=== PATIENT | male | born 1965 | race Two or more races ===

== ENCOUNTER 2019-01-20 08:11 | Inpatient (IN) | payer OTHER ==
[~2019-01-20] VITALS: Ht 175.3 cm; Wt 96.2 kg
[2019-01-20] MEDS ORDERED: tuberculin, purif. prot. deriv. 5 units/0.1ml ID ONE (09:00)
[2019-01-20] MEDS ORDERED: acetaminophen 325mg tablet PO PRN ×2 (09:00)
[2019-01-20] MEDS ORDERED: hydrOXYzine 25 MG tablet PO PRN (09:00)
[2019-01-20] MEDS ORDERED: loperamide 2mg capsule PO PRN (09:00)
[2019-01-20] MEDS ORDERED: mag hydrox/Alum hydrox/simeth 30ml oral suspension PO PRN (09:00)
[2019-01-20] MEDS ORDERED: magnesium hydroxide 30ml (MOM) UD suspension PO PRN (09:00)
[2019-01-20] MEDS ORDERED: QUET100T33 PO (09:39)
[2019-01-20] MEDS ORDERED: SERT100T10 PO (09:39)
[2019-01-20] MEDS ORDERED: TEMA30CA PO (09:39)
[2019-01-20] MEDS ORDERED: ESZO3TAB44 PO (09:39)
[2019-01-20] MEDS ORDERED: CARV-50 PO (09:46)
[2019-01-20] MEDS ORDERED: FERR325T32 PO (09:48)
--- NOTE | 2019-01-20 14:50 | NUR ---
Pt arrives on the unit ambulatory at 1445. PT escorted y security and a taxicab driver and Kal MARTINEZ. PT taken to the shower for skin check. Pt admitted for depression after overdose on his medications and a stay in the ICU at [place]. Pt overdosed on Coreg,Procardia, Seroquel, and Trazodone and left a note for his brothers to take care of his family. Pt reports his had asked for a divorce and he hasn't been sleeping and worrying his is sleeping with other men. Pt admitted on 5150 for danger to self. Pt cooperative with admission process and using the online barker operator.
--- NOTE | 2019-01-20 16:00 | NUR ---
Vitals on admission: 121/76, 56 BPM, 97%, Pain: 0/10, T: 97.5, R:16
--- NOTE | 2019-01-20 18:00 | NUR ---
Chief complaint: 53 year-old male was brought in to the Emergency Department at [facility] on 01/07/19 with prior suicide attempt, and admitted for acute metabolic encephalopathy, nausea, vomiting, after intentional overdose with medications including Procardia, seroquel, trazodone, Procardia and benzodiazepines. He went into circulatory shock associated with the antihypertensive medication overdose vs. sepsis r/t aspiration pneumonia, and acute kidney injury r/t rhabdomyolosis vs. transamenitis. Pt. also has a non-bleeding gastric ulcer diagnosed by EGD. Patient was intubated due to the respiratory failure. He received IV antibiotic therapy during his hospital course for aspiration pneumonia. He was diagnosed with anemia and started on iron. Legal hold: Pt. on involuntary hold to DTS and suicide attempt Assessment: What happened this shift: pt. oriented to facility. He is malay speaking primarily but speaks broken greenlandic and understands some greenlandic as well. He is pleasant and cooperative and denies H/I, S/I, A/H, V/H. He denies feeling depressed or anxious at this time. He reports that he is concerned about not being able to sleep tonight. This RN reassured patient that he is here to recover and we are here to help him. Pt was appreciative of this and verbalized understanding. Pt. made a phone call to . Patient states that he has a good support system of family, friends, and his spouse. He ate a snack in the community room after admission completed. Pt. showered. Any Med S/E: N/A Mental Status Exam: Appearance: Clean, well groomed Eye contact: good Behavior: calm Speech: normal sarah, clear Mood: calm Affect: flat Thought Content: focused on sleep Cognition: A&O x 4 Insight: fair Judgement: fair Interventions: PRNs used: none Therapeutic interventions: Therapeutic interventions: attempted1:1 therapeutic assessment, maintained safe therapeutic milieu, provided active listening with positive feedback. Monitored for change in behavior and needed interventions. Q15 safety checks. Restraints/seclusion/emergency medication: N/A Justification of Continued Inpatient Treatment: Continued therapeutic support and medication management needed to provide stabilization, prevent decompensation, improve coping mechanisms decreasing risk to patient and readmission.
[2019-01-20 19:00] VITALS: BP 115/66
--- NOTE | 2019-01-20 19:30 | NUR ---
Nursing Note: Obtained orders from Migue SAMAYOA to D/C Temazepam and Amblawanda at HS r/t pt. having scheduled Seroquel ordered. Pt. encouraged to notify staff if he experiences any insomnia this shift, he reports understanding.
[2019-01-20 21:00] VITALS: BP 110/60
[2019-01-20] MEDS ORDERED: temazepam 15mg capsule PO SCH (21:00)
[2019-01-20] MEDS: carVEDilol 12.5mg tablet PO SCH (21:02)
[2019-01-20] MEDS: quetiapine 100mg tablet PO SCH (21:02)
[2019-01-20] MEDS: ferrous sulfate 325mg tablet PO SCH (21:02)
--- NOTE | 2019-01-21 00:47 | NUR ---
Nursing Progress Note: Legal hold: 5150 Client on involuntary status for DTS. Report received from nurse with use of SBAR: JUAN Gallo Why are they here: 53 year-old male was brought in to the Emergency Department at [facility] on 01/07/19 with altered sensorium after a suicide attempt to overdose on multiple medications including Procardia, Seroquel, Trazodone, Coreg, and Benzodiazepines. He was intubated for rr failure and admitted for acute metabolic encephalopathy, complicated by circulatory shock, possible sepsis r/t aspiration pneumonia, and acute kidney injury r/t hypoperfusion v/s rhabdomyolysis. Pt. also has a non-bleeding gastric ulcer diagnosed by EGD, and was diagnosed with anemia and started on iron. Pt. had left a note for his brothers to take care of his family. Pt reports his had asked for a divorce and he hasn't been sleeping and worrying his is sleeping with other men. Assessment What has happened this shift: Pt. in bed at the beginning of the shift, continues to isolate here throughout the shift, however does attend HS snack. This report writer introduces self and establishes rapport, pt. able to communicate with effectively and denies the need for use of computer oncology physician. 1:1 completed at bedside, pt. presents as pleasant, cooperative, fatigued, and guarded. He admits to ongoing depression and some anxiety, however denies any S/I or A/H. Pt. appears to be minimizing any s/s, resting comfortably, will continue to monitor. S/I, H/I: Denies A/VH: Denies Sleep: Pt. reports hx of insomnia, scheduled Seroquel administered. Pt. encouraged to notify staff if he experiences any insomnia this shift, he reports understanding. ADL's: Independent Group attendance: Attends HS snack Were meds taken: Yes Any med S/E: None Mental Status Exam Appearance: Neat and appropriately dressed in hospital attire Eye contact: Fair Behavior: Pt. presents as pleasant, cooperative, fatigued, and guarded. Speech: Soft, responds minimally to questions. Mood: Pleasant, but guarded Affect: Flat Thought process:Poverty of thought Thought Content: WNL Cognition: A &O X4 Insight: Poor Judgment: Poor Interventions PRN's used: None Therapeutic interventions: Introduced self and established rapport, ensured contract for safety, maintained a safe and therapeutic environment, observed for changes in behavior and need for intervention, encouraged independent performance of ADLs, and maintained Q 15 min safety checks. Restraints/seclusion/emergency medication: N/A Justification of Continued Inpatient Treatment: Pt. requires interruption of current crisis, medication adjustments, and a safe and supportive environment.
[2019-01-21 07:30] LABS: HEMOGLOBIN A1C 5.8 % (4.5-6.2)
[2019-01-21 07:47] LABS: CHOL/HDL RATIO 6.2 (0.00-4.99); CHOLESTEROL 155 MG/DL (0-200); HDL CHOLESTEROL 25 MG/DL (35-60); LDL CHOLESTEROL 102 MG/DL (50-100); TRIGLYCERIDES 139 MG/DL (20-135)
[2019-01-21 07:56] VITALS: BP 134/81
[2019-01-21] MEDS: carVEDilol 12.5mg tablet PO SCH ×2 (08:00→20:39)
[2019-01-21] MEDS: ferrous sulfate 325mg tablet PO SCH ×2 (08:30→20:39)
[2019-01-21] MEDS: sertraline 50mg tablet PO SCH (08:30)
[2019-01-21 09:00] LABS: BASOPHILS # (AUTO) 0.1 X10'3 (0-0.2); EOSINOPHILS # (AUTO) 0.3 X10'3 (0-0.9); EOSINOPHILS % (AUTO) 2.6 % (0-6); HEMATOCRIT 35.6 % (42.0-52.0); HEMOGLOBIN 11.7 g/dl (14.0-17.9); LYMPHOCYTES # (AUTO) 2.9 X10'3 (1.1-4.8); LYMPHOCYTES % (AUTO) 23.8 % (21-51); MEAN CORPUSCULAR HEMOGLOBIN 28.6 PG (27.0-31.0); MEAN CORPUSCULAR HGB CONC 32.9 g/dL (33.0-36.5); MEAN CORPUSCULAR VOLUME 86.9 FL (78-98); MEAN PLATELET VOLUME 8.1 FL (7.4-10.4); MONOCYTES # (AUTO) 1.1 X10'3 (0-0.9); NEUTROPHILS # (AUTO) 7.8 X10'3 (1.8-7.7); NEUTROPHILS % (AUTO) 63.6 % (42-75); PLATELET COUNT 496 X10'3 (140-440); WHITE BLOOD COUNT 12.3 X10'3 (4.5-11.0)
[2019-01-21 09:02] LABS: ALANINE AMINOTRANSFERASE 65 U/L (12-78); ALBUMIN/GLOBULIN RATIO 0.9 (1.1-1.5); ALKALINE PHOSPHATASE 57 IU/L (46-116); ANION GAP 12 (8-16); ASPARTATE AMINO TRANSFERASE 25 U/L (10-37); BILIRUBIN,TOTAL 0.3 MG/DL (0.1-1.0); BLOOD UREA NITROGEN 15 MG/DL (7-18); BUN/CREATININE RATIO 11.3 (5.4-32.0); CALCIUM 9.2 MG/DL (8.5-10.1); CHLORIDE 109 MMOL/L (99-107); CREATININE 1.33 MG/DL (0.60-1.10); GLUCOSE 88 MG/DL (70-104); POTASSIUM 4.2 MMOL/L (3.5-5.1); SODIUM 143 MMOL/L (135-145); TOTAL CARBON DIOXIDE 22.4 MMOL/L (24-32); TOTAL PROTEIN 6.4 G/DL (6.4-8.2); eGFR 56 ML/MIN
--- NOTE | 2019-01-21 09:57 | NUR ---
Malnutrition consult. Patient presents with reported 24-33 lb weight loss and reports of poor appetite. Patient is eating well, appears to have great appetite and 100% PO intake of heart healthy meals. Newly diagnosed with HTN, LDL 102, HDL 25, TG of 139, reports eating low sodium meals at home. Patient has no edema. Normal muscle strength. Does not meet criteria for malnutrition at this time. Addendum: 01/21/19 at [address] Amended: Links added.
[2019-01-21] MEDS: pantoprazole 40mg Tablet.DR PO SCH (11:00)
[2019-01-21] MEDS ORDERED: NIFE60TA79 PO (11:45)
[2019-01-21] MEDS ORDERED: IRBE1TAB33 PO (11:45)
--- NOTE | 2019-01-21 13:23 | NUR ---
COUNTY CONTACT: SW made TC to Triage Connect Team (TCT) at [phone] and spoke with Piedad. SW requested information that could be used for discharge planning and/or care coordination. Per TCT, pt has never been placed in [facility] for acute stabilization. SW provided update. Per report, pt has requested medical leave from work through February 2019. Piedad Quinonez, Corporate Training Manager SPRINKLING SYSTEM IRRIGATOR [id number] Supervised by Renard Ramos, [id number]
--- NOTE | 2019-01-21 17:58 | NUR ---
Nursing Progress Note: Legal hold: 5150 Client on involuntary status for DTS. Report received from nurse with use of SBAR: JUAN Gallo Why are they here: 53 year-old male was brought in to the Emergency Department at [facility] on 01/07/19 with altered sensorium after a suicide attempt to overdose on multiple medications including Procardia, Seroquel, Trazodone, Coreg, and Benzodiazepines. He was intubated for rr failure and admitted for acute metabolic encephalopathy, complicated by circulatory shock, possible sepsis r/t aspiration pneumonia, and acute kidney injury r/t hypoperfusion v/s rhabdomyolysis. Pt. also has a non-bleeding gastric ulcer diagnosed by EGD, and was diagnosed with anemia and started on iron. Pt. had left a note for his brothers to take care of his family. Pt reports his had asked for a divorce and he hasn't been sleeping and worrying his is sleeping with other men. Assessment What has happened this shift: Patient has been staying in his room for much of the day. Patient is Jordanian speaking. Patient states that his asked him for a divorce 7 months ago and has been depressed/suicidal. He is agreeable to going to counseling with his . Patient has been pleasant and cooperative on unit. S/I, H/I: SI via OD. A/VH: Denies Sleep: Seven hours at night. Reports he only sleeps 2-3 hrs. a night. ADL's: Independent Group attendance: Yes. Were meds taken: Yes Any med S/E: None Mental Status Exam Appearance: Neat and appropriately dressed in hospital attire Eye contact: Fair Behavior: Pt. presents as pleasant, cooperative, fatigued, and guarded. Pt. undestands more Nigerian than reports. Speech: Soft, responds minimally to questions. Mood: Depressed. Affect: Flat Thought process: Poverty of thought. Linear. Thought Content: Concerned about his marriage. Cognition: A &O X4 Insight: Poor Judgment: Poor Interventions PRN's used: None Therapeutic interventions: Introduced self and established rapport, ensured contract for safety, maintained a safe and therapeutic environment, observed for changes in behavior and need for intervention, encouraged independent performance of ADLs, and maintained Q 15 min safety checks. Restraints/seclusion/emergency medication: N/A Justification of Continued Inpatient Treatment: Pt. requires interruption of current crisis, medication adjustments, and a safe and supportive environment.
[2019-01-21 19:00] VITALS: BP 170/92
[2019-01-21 20:30] VITALS: BP 130/80
[2019-01-21] MEDS: NIFEdipine XL 30mg tablet PO SCH (20:39)
[2019-01-21] MEDS: quetiapine 100mg tablet PO SCH (20:40)
[2019-01-21] MEDS ORDERED: zolpidem 5mg tablet PO SCH (21:00)
[2019-01-22] MEDS: LORazepam 1 MG tablet PO PRN ×2 (00:36→23:20)
--- NOTE | 2019-01-22 01:06 | NUR ---
Nursing Progress Note: Legal hold: 5150 Client on involuntary status for DTS. Report received from nurse with use of SBAR: JUAN Gallo Why are they here: 53 year-old male was brought in to the Emergency Department at [facility] on 01/07/19 with altered sensorium after a suicide attempt to overdose on multiple medications including Procardia, Seroquel, Trazodone, Coreg, and Benzodiazepines. He was intubated for rr failure and admitted for acute metabolic encephalopathy, complicated by circulatory shock, possible sepsis r/t aspiration pneumonia, and acute kidney injury r/t hypoperfusion v/s rhabdomyolysis. Pt. also has a non-bleeding gastric ulcer diagnosed by EGD, and was diagnosed with anemia and started on iron. Pt. had left a note for his brothers to take care of his family. Pt reports his had asked for a divorce and he hasn't been sleeping and worrying his is sleeping with other men. Assessment What has happened this shift: Pt. in bed at the beginning of the shift, and continues to isolate here throughout most of the shift. When questioned by this process description writer in regard to how he is doing, pt. states flatly, "Not too good, my blood pressue is still high," however when rechecked by this process description writer manually was WNL. 1:1 completed at bedside, pt. continues to be able to communicate with effectively with this process description writer. He presents as fatigued, withdrawn, and guarded, however continues to be pleasant and cooperative. Pt. continues to report ongoing depression and anxiety, however denies any S/I. He does report with a brief smile that he spoke to his family on the phone this evening, and they continue to be supportive of him. He confirms that he did attend group today, and when questioned by this process description writer regarding how group went, pt. stated, "So, so, but I'm going to keep trying." Pt. reports he has been eating well and documented intake shows he has been eating 100% of his meals. He admits that he did have one episode of diarrhea today, however none since then, this process description writer educated pt. to let staff know if he has any further episodes and he voiced understanding. Skin check completed with second nurse and skin appears CDI. S/I, H/I: Denies A/VH: Denies Sleep: Pt. reports restless sleep. Pt. encouraged to notify staff if he experiences any insomnia this shift, he reports understanding. PRN Atrax and Ativan administered at HS per pt. c/o insomnia r/t restlessness, will continue to monitor. ADL's: Independent Group attendance: Pt. reports he attended group today Were meds taken: Yes Any med S/E: None Mental Status Exam Appearance: Neat and appropriately dressed in hospital attire Eye contact: Fair Behavior: Pt. presents as pleasant, cooperative, fatigued, and guarded, and withdrawn. Speech: Soft, responds minimally to questions. Mood: Pleasant, but guarded. Some restlessness Affect: Flat Thought process:Poverty of thought Thought Content: Thought blocking and minimizing Cognition: A &O X4 Insight: Poor Judgment: Poor Interventions PRN's used: Atrax and Ativan Therapeutic interventions: Ensured contract for safety, maintained a safe and therapeutic environment, observed for changes in behavior and need for intervention, encouraged independent performance of ADLs, provided a quiet environment for sleep and encouraged pt. to notify staff if he experiences any insomnia, and maintained Q 15 min safety checks. Restraints/seclusion/emergency medication: N/A Justification of Continued Inpatient Treatment: Pt. requires interruption of current crisis, medication adjustments, and a safe and supportive environment.
[2019-01-22 08:00] VITALS: BP 139/87
[2019-01-22] MEDS: pantoprazole 40mg Tablet.DR PO SCH (08:20)
[2019-01-22] MEDS: ferrous sulfate 325mg tablet PO SCH ×2 (08:21→20:36)
[2019-01-22] MEDS: carVEDilol 12.5mg tablet PO SCH ×2 (08:21→20:37)
[2019-01-22] MEDS: sertraline 50mg tablet PO SCH (08:22)
[2019-01-22] MEDS: losartan 50mg tablet PO SCH (08:23)
[2019-01-22] MEDS: HYDROchlorothiazide 12.5mg capsule PO SCH (08:23)
[2019-01-22] MEDS: NIFEdipine XL 30mg tablet PO SCH ×2 (08:23→20:39)
--- NOTE | 2019-01-22 16:45 | NUR ---
NURSING PROGRESS NOTE Legal hold: 5150 Client on involuntary status for DTS. Report received from nurse with use of SBAR: JUAN Bellamy Why are they here: 53 year-old male was brought in to the Emergency Department at [facility] on 01/07/19 with altered sensorium after a suicide attempt to overdose on multiple medications including Procardia, Seroquel, Trazodone, Coreg, and Benzodiazepines. He was intubated for rr failure and admitted for acute metabolic encephalopathy, complicated by circulatory shock, possible sepsis r/t aspiration pneumonia, and acute kidney injury r/t hypoperfusion v/s rhabdomyolysis. Pt. also has a non-bleeding gastric ulcer diagnosed by EGD, and was diagnosed with anemia and started on iron. Pt. had left a note for his brothers to take care of his family. Pt reports his had asked for a divorce and he hasn't been sleeping and worrying his is sleeping with other men. Assessment The patient was asleep at change of shift. He is depressed, quiet and withdrawn. He is also polite and cooperative. He is med compliant. Assessment was completed with JUAN Lennon who interpreted as patient is wolof speaking. He states his depression is 4/10 today and states he feels "better" than he did yesterday and he feels "right now OK". He denies SI, HI, and all hallucinations. He layed in his bed today and rested often. He is concerned about sleeping tonight and thinks he only slept for 4 hours last night. His and family are supportive and he agrees to marital counseling. S/I, H/I: Denies A/VH: Denies Sleep: naps ADL's: Independent Group attendance: Yes. Were meds taken: Yes Any med S/E: None Mental Status Exam Appearance: Neat and appropriately dressed in hospital attire Eye contact: Fair Behavior: Pt. presents as pleasant, cooperative, fatigued, and guarded. Speech: WNL Mood: Depressed. Affect: Flat Thought process: Poverty of thought. Linear. Thought Content: Concerned about his marriage. Cognition: A &O X4 Insight: Poor Judgment: Poor Interventions PRN's used: None Therapeutic interventions: Introduced self and established rapport, ensured contract for safety, maintained a safe and therapeutic environment, observed for changes in behavior and need for intervention, encouraged independent performance of ADLs, and maintained Q 15 min safety checks. Restraints/seclusion/emergency medication: N/A Justification of Continued Inpatient Treatment: Pt. requires interruption of current crisis, medication adjustments, and a safe and supportive environment.
[2019-01-22 20:00] VITALS: BP 127/81
[2019-01-22] MEDS: mirtazapine 15mg tablet PO SCH (20:38)
[2019-01-22] MEDS: quetiapine 100mg tablet PO SCH (20:40)
[2019-01-22] MEDS ORDERED: mirtazapine 15mg tablet PO SCH (21:00)
--- NOTE | 2019-01-22 22:36 | NUR ---
NURSING PROGRESS NOTE Legal hold: 5150 Client on involuntary status for DTS. Report received from nurse with use of SBAR: JUAN Gallo Why are they here: 53 year-old male was brought in to the Emergency Department at [facility] on 01/07/19 with altered sensorium after a suicide attempt to overdose on multiple medications including Procardia, Seroquel, Trazodone, Coreg, and Benzodiazepines. He was intubated for rr failure and admitted for acute metabolic encephalopathy, complicated by circulatory shock, possible sepsis r/t aspiration pneumonia, and acute kidney injury r/t hypoperfusion v/s rhabdomyolysis. Pt. also has a non-bleeding gastric ulcer diagnosed by EGD, and was diagnosed with anemia and started on iron. Pt. had left a note for his brothers to take care of his family. Pt reports his had asked for a divorce and he hasn't been sleeping and worrying his is sleeping with other men. Assessment The patient was in his room at change of shift. He is depressed, quiet and withdrawn. He is also polite and cooperative. He is med compliant. He states his depression is 4/10 today and states he feels "better" than he did yesterday and he feels "right now OK". He denies SI, HI, and all hallucinations. He layed in his bed today and rested often. He is concerned about sleeping tonight and thinks he only slept for 4 hours last night.Informed him his sleep medication was increased which should help. His and family are supportive and he agrees to marital counseling. S/I, H/I: Denies A/VH: Denies Sleep: naps ADL's: Independent Group attendance: Yes. Were meds taken: Yes Any med S/E: None Mental Status Exam Appearance: Neat and appropriately dressed in hospital attire Eye contact: Fair Behavior: Pt. presents as pleasant, cooperative, fatigued, and guarded. Speech: WNL Mood: Depressed. Affect: Flat Thought process: Poverty of thought. Linear. Thought Content: Concerned about his marriage. Cognition: A &O X4 Insight: Poor Judgment: Poor Interventions PRN's used: None Therapeutic interventions: Introduced self and established rapport, ensured contract for safety, maintained a safe and therapeutic environment, observed for changes in behavior and need for intervention, encouraged independent performance of ADLs, and maintained Q 15 min safety checks. Restraints/seclusion/emergency medication: N/A Justification of Continued Inpatient Treatment: Pt. requires interruption of current crisis, medication adjustments, and a safe and supportive environment. Addendum: 01/22/19 at 2330 by Elvis Short RN Patient c/o difficulty sleeping Prn Ativan @ 2330.
[2019-01-23] MEDS: pantoprazole 40mg Tablet.DR PO SCH (07:40)
[2019-01-23] MEDS: ferrous sulfate 325mg tablet PO SCH ×2 (07:41→20:21)
[2019-01-23] MEDS: sertraline 50mg tablet PO SCH (07:42)
[2019-01-23] MEDS: losartan 50mg tablet PO SCH (07:43)
[2019-01-23 08:00] VITALS: BP 127/80
[2019-01-23] MEDS: NIFEdipine XL 30mg tablet PO SCH ×2 (08:04→20:20)
[2019-01-23] MEDS: carVEDilol 12.5mg tablet PO SCH ×2 (08:04→20:21)
[2019-01-23] MEDS: HYDROchlorothiazide 12.5mg capsule PO SCH (08:13)
--- NOTE | 2019-01-23 12:31 | NUR ---
COUNSELING REFERRAL: SW made TC to Raghavendra Otoole LCSW in [place] to request consultation and collaboration of pt needs for referral. SW left message requesting a return contact. [facility] [address] [place] [address] [address] [place], [place] [address] Piedad Quinonez, Sewer Pipe Layer Helper SPOUTING INSTALLER [id number] Supervised by Renard Ramos, [id number]
--- NOTE | 2019-01-23 12:51 | NUR ---
0700 physical assessment charted on wrong patient- please disregard. SN MARTINEZ Addendum: 01/23/19 at 1253 by Maria Elena Robins RN Amended: Links added.
--- NOTE | 2019-01-23 17:35 | NUR ---
NURSING PROGRESS NOTE Legal hold: 5150 Client on involuntary status for DTS. Report received from nurse with use of SBAR: Sheba Mendosa RN Why are they here: 53 year-old male was brought in to the Emergency Department at [facility] on 01/07/19 with altered sensorium after a suicide attempt to overdose on multiple medications including Procardia, Seroquel, Trazodone, Coreg, and Benzodiazepines. He was intubated for rr failure and admitted for acute metabolic encephalopathy, complicated by circulatory shock, possible sepsis r/t aspiration pneumonia, and acute kidney injury r/t hypoperfusion v/s rhabdomyolysis. Pt. also has a non-bleeding gastric ulcer diagnosed by EGD, and was diagnosed with anemia and started on iron. Pt. had left a note for his brothers to take care of his family. Pt reports his had asked for a divorce and he hasn't been sleeping and worrying his is sleeping with other men. Assessment What happened this shift: The patient was in bed resting peacefully at change of shift. Pt is depressed, quiet and withdrawn. He is also polite and cooperative. He is seen resting quite often throughout the day in his room and isolates. He is medication compliant and denies any adverse or secondary effects from medication at this time. He states his depression is "OK". He states that his anxiety is " a little bit", and reports that he is going to lay down to rest. He declines PRN medication intervention. He denies SI, HI, AH, VH. He ate all meals in the community room and participated in groups. He was seen resting intermittently throughout the day. S/I, H/I: Denies A/VH: Denies Sleep: naps intermittently ADL's: Independent Group attendance: Yes. Were meds taken: Yes Any med S/E: None Mental Status Exam Appearance: Neat and appropriately dressed in personal clothing Eye contact: Fair Behavior: Pt. presents as pleasant, cooperative, fatigued, and guarded. Speech: non pressured, normal sarah, organized, patient is Sami speaking but speaks and understands Sudanese. Mood: Depressed. Affect: Flat Thought process: Poverty of thought. Linear. Thought Content: Concerned about his marriage. Cognition: A &O X4 Insight: Poor Judgment: Poor Interventions PRN's used: None Therapeutic interventions: maintained a safe and therapeutic environment, observed for changes in behavior and need for intervention, encouraged independent performance of ADLs, and maintained Q 15 min safety checks. Restraints/seclusion/emergency medication: N/A Justification of Continued Inpatient Treatment: Pt. requires interruption of current crisis r/t recent suicide attempt by OD, medication adjustments, and a safe and supportive environment with a focus on rest and rehabilitation.
[2019-01-23 19:23] VITALS: BP 124/79
[2019-01-23] MEDS: quetiapine 100mg tablet PO SCH (20:21)
[2019-01-23] MEDS: mirtazapine 15mg tablet PO SCH (20:22)
--- NOTE | 2019-01-23 21:28 | NUR ---
NURSING PROGRESS NOTE Legal hold: [id number] Client on involuntary status for DTS. Report received from nurse with use of SBAR: Sheba Mendosa RN Why are they here: 53 year-old male was brought in to the Emergency Department at [facility] on 01/07/19 with altered sensorium after a suicide attempt to overdose on multiple medications including Procardia, Seroquel, Trazodone, Coreg, and Benzodiazepines. He was intubated for rr failure and admitted for acute metabolic encephalopathy, complicated by circulatory shock, possible sepsis r/t aspiration pneumonia, and acute kidney injury r/t hypoperfusion v/s rhabdomyolysis. Pt. also has a non-bleeding gastric ulcer diagnosed by EGD, and was diagnosed with anemia and started on iron. Pt. had left a note for his brothers to take care of his family. Pt reports his had asked for a divorce and he hasn't been sleeping and worrying his is sleeping with other men. Assessment What happened this shift: The patient was in bed resting peacefully at change of shift. Pt is depressed, quiet and withdrawn. He is also polite and cooperative. He is seen resting quite often throughout the day in his room and isolates. He denies SI, HI, AH, VH. He ate all meals in the community room and participated in groups. He reports anxiety but dose not want medication for it. S/I, H/I: Denies A/VH: Denies Sleep: naps intermittently ADL's: Independent Group attendance: Yes. Were meds taken: Yes Any med S/E: None Mental Status Exam Appearance: Neat and appropriately dressed in personal clothing Eye contact: Fair Behavior: Pt. presents as pleasant, cooperative, fatigued, and guarded. Speech: non pressured, normal sarah, organized, patient is South Sudanese speaking but speaks and understands Ugandan. Mood: Depressed. Affect: Flat Thought process: Poverty of thought. Linear. Thought Content: Concerned about his marriage. Cognition: A &O X4 Insight: Poor Judgment: Poor Interventions PRN's used: None Therapeutic interventions: maintained a safe and therapeutic environment, observed for changes in behavior and need for intervention, encouraged independent performance of ADLs, and maintained Q 15 min safety checks. Restraints/seclusion/emergency medication: N/A Justification of Continued Inpatient Treatment: Pt. requires interruption of current crisis r/t recent suicide attempt by OD, medication adjustments, and a safe and supportive environment with a focus on rest and rehabilitation.
[2019-01-23] MEDS: LORazepam 1 MG tablet PO PRN (22:03)
[2019-01-24 07:27] VITALS: BP 118/73
[2019-01-24] MEDS: pantoprazole 40mg Tablet.DR PO SCH (08:08)
[2019-01-24] MEDS: NIFEdipine XL 30mg tablet PO SCH ×2 (08:08→20:46)
[2019-01-24] MEDS: losartan 50mg tablet PO SCH (08:09)
[2019-01-24] MEDS: sertraline 50mg tablet PO SCH (08:09)
[2019-01-24] MEDS: HYDROchlorothiazide 12.5mg capsule PO SCH (08:09)
[2019-01-24] MEDS: carVEDilol 12.5mg tablet PO SCH ×2 (08:09→20:45)
[2019-01-24] MEDS: ferrous sulfate 325mg tablet PO SCH ×2 (08:09→20:46)
--- NOTE | 2019-01-24 12:46 | NUR ---
Initial: Patient eating well, great appetite, average PO intake 75-100% PO, meeting needs. [facility] 01/23. No nutrition problem. Will continue to follow. Recommend 1. continue heart healthy diet 2. weekly weights Addendum: 01/24/19 at [address] Amended: Links added.
--- NOTE | 2019-01-24 17:06 | NUR ---
NURSING PROGRESS NOTE Legal hold: Voluntary as of 01/23/19 Client on involuntary status for DTS. Report received from nurse with use of SBAR: JUAN Patricio Why are they here: 53 year-old male was brought in to the Emergency Department at [facility] on 01/07/19 with altered sensorium after a suicide attempt to overdose on multiple medications including Procardia, Seroquel, Trazodone, Coreg, and Benzodiazepines. He was intubated for respiratory failure and admitted for acute metabolic encephalopathy, complicated by circulatory shock, possible sepsis r/t aspiration pneumonia, and acute kidney injury r/t hypoperfusion v/s rhabdomyolysis. Pt. also has a non-bleeding gastric ulcer diagnosed by EGD, and was diagnosed with anemia and started on iron. Pt. had left a note for his brothers to take care of his family. Pt reports his had asked for a divorce and he hasn't been sleeping and worrying his is sleeping with other men. Assessment What happened this shift: Pt is sleeping at change of shift. Pt is depressed, quiet and withdrawn. He is also polite and cooperative. He is seen resting quite often throughout the day in his room and continues to isolate some. When asked about this he reports that he feels like an outsider and finds it hard to communicate and relate to others here, mostly due to the language barrier. He denies SI, HI, AH, VH. He ate all meals in the community room and participated in groups. He reports anxiety 01/15 but declines medication intervention. Pt instead reads and engages in conversation with this RN which he reports helped his symptoms some. Pt called to talk to his which he reports also helped with his anxiety as well. S/I, H/I: Denies A/VH: Denies Sleep: naps intermittently throughout this shift ADL's: Independent Group attendance: Yes. Were meds taken: Yes Any med S/E: None Mental Status Exam Appearance: Neat and appropriately dressed in personal clothing Eye contact: Fair Behavior: Pt. presents as pleasant, cooperative, fatigued, and guarded. Speech: non pressured, normal sarah, organized, patient is Czech speaking but speaks and understands Lao. Mood: Depressed. Affect: Flat Thought process: Poverty of thought. Linear. Thought Content: Concerned about his marriage. Cognition: A &O X4 Insight: Poor Judgment: Poor Interventions PRN's used: None Therapeutic interventions: maintained a safe and therapeutic environment, observed for changes in behavior and need for intervention, encouraged independent performance of ADLs, and maintained Q 15 min safety checks. Restraints/seclusion/emergency medication: N/A Justification of Continued Inpatient Treatment: Pt. requires interruption of current crisis r/t recent suicide attempt by OD, medication adjustments, and a safe and supportive environment with a focus on rest and rehabilitation.
[2019-01-24 20:25] VITALS: BP 135/81
[2019-01-24] MEDS: mirtazapine 15mg tablet PO SCH (20:46)
[2019-01-24] MEDS: quetiapine 100mg tablet PO SCH (20:46)
[2019-01-24] MEDS: LORazepam 1 MG tablet PO PRN (22:09)
--- NOTE | 2019-01-25 01:30 | NUR ---
NURSING PROGRESS NOTE Legal hold: Voluntary as of 01/23/19 Client on involuntary status for DTS. Report received from nurse with use of SBAR: JUAN Patriico Why are they here: 53 year-old male was brought in to the Emergency Department at [facility] on 01/07/19 with altered sensorium after a suicide attempt to overdose on multiple medications including Procardia, Seroquel, Trazodone, Coreg, and Benzodiazepines. He was intubated for respiratory failure and admitted for acute metabolic encephalopathy, complicated by circulatory shock, possible sepsis r/t aspiration pneumonia, and acute kidney injury r/t hypoperfusion v/s rhabdomyolysis. Pt. also has a non-bleeding gastric ulcer diagnosed by EGD, and was diagnosed with anemia and started on iron. Pt. had left a note for his brothers to take care of his family. Pt reports his had asked for a divorce and he hasn't been sleeping and worrying his is sleeping with other men. Assessment What happened this shift: Pt up on unit at start of shift. Interacted with other pts. He watched Football in the Rec room with pts and staff. Pt able to make needs known in Wolof. Pt denies depression but admits to "a little sadness" denies SI. Cooperative with care took all meds. Requested and given an Ativan at Hs to help with sleep. He is sleeping at this time. A/VH: Denies Sleep: Sleeping at this time. ADL's: Independent Group attendance: Yes. Were meds taken: Yes Any med S/E: None Mental Status Exam Appearance: Neat and appropriately dressed in personal clothing Eye contact: Fair Behavior: Pt. presents as pleasant, cooperative, fatigued, and guarded. Speech: non pressured, normal sarah, organized, patient is Greek speaking but speaks and understands Wolof. Mood: Depressed. Affect: Flat Thought process: Poverty of thought. Linear. Thought Content: Concerned about his marriage. Cognition: A &O X4 Insight: Poor Judgment: Poor Interventions PRN's used: Ativan Therapeutic interventions: maintained a safe and therapeutic environment, observed for changes in behavior and need for intervention, encouraged independent performance of ADLs, and maintained Q 15 min safety checks. Restraints/seclusion/emergency medication: N/A Justification of Continued Inpatient Treatment: Pt. requires interruption of current crisis r/t recent suicide attempt by OD, medication adjustments, and a safe and supportive environment with a focus on rest and rehabilitation.
[2019-01-25 07:23] VITALS: BP 121/73
[2019-01-25] MEDS ORDERED: sertraline 50mg tablet PO SCH (08:00)
[2019-01-25] MEDS: losartan 50mg tablet PO SCH (08:12)
[2019-01-25] MEDS: HYDROchlorothiazide 12.5mg capsule PO SCH (08:12)
[2019-01-25] MEDS: pantoprazole 40mg Tablet.DR PO SCH (08:13)
[2019-01-25] MEDS: ferrous sulfate 325mg tablet PO SCH ×2 (08:13→20:56)
[2019-01-25] MEDS: carVEDilol 12.5mg tablet PO SCH ×2 (08:13→20:58)
[2019-01-25] MEDS: NIFEdipine XL 30mg tablet PO SCH ×2 (08:15→20:55)
--- NOTE | 2019-01-25 15:46 | NUR ---
NURSING PROGRESS NOTE Legal hold: Voluntary as of 01/23/19 Client on involuntary status for DTS. Report received from nurse with use of SBAR: JUAN Patricio Why are they here: 53 year-old male was brought in to the Emergency Department at [facility] on 01/07/19 with altered sensorium after a suicide attempt to overdose on multiple medications including Procardia, Seroquel, Trazodone, Coreg, and Benzodiazepines. He was intubated for respiratory failure and admitted for acute metabolic encephalopathy, complicated by circulatory shock, possible sepsis r/t aspiration pneumonia, and acute kidney injury r/t hypoperfusion v/s rhabdomyolysis. Pt. also has a non-bleeding gastric ulcer diagnosed by EGD, and was diagnosed with anemia and started on iron. Pt. had left a note for his brothers to take care of his family. Pt reports his had asked for a divorce and he hasn't been sleeping and worrying his is sleeping with other men. Assessment What happened this shift: Pt is resting in bed peacefully at change of shift. He is pleasant and cooperative but reports that he is a little sad and has a small amount of anxiety. He denies S/I, H/I, A/H, V/H. He is up for all meals in the community room. He interacted with other pts during group participation. Pt able to make needs known in Surinamese. He takes all meds without difficulty. He is seen resting in his room throughout the day, but appears to be isolating less and is seen walking in the nielsen as well throughout this shift. A/VH: Denies Sleep: rests intermittently throughout the day. ADL's: Independent Group attendance: Yes. Were meds taken: Yes Any med S/E: None Mental Status Exam Appearance: Neat and appropriately dressed in personal clothing Eye contact: Fair Behavior: Pt. presents as pleasant, cooperative, fatigued, and guarded. Speech: non pressured, normal sarah, organized, patient is Lebanese speaking but speaks and understands Surinamese. Mood: Depressed. Affect: Flat Thought process: Poverty of thought. Linear. Thought Content: Concerned about his marriage. Cognition: A &O X4 Insight: Poor Judgment: Poor Interventions PRN's used: none Therapeutic interventions: maintained a safe and therapeutic environment, observed for changes in behavior and need for intervention, encouraged independent performance of ADLs, and maintained Q 15 min safety checks. Restraints/seclusion/emergency medication: N/A Justification of Continued Inpatient Treatment: Pt. requires interruption of current crisis r/t recent suicide attempt by OD, medication adjustments, and a safe and supportive environment with a focus on rest and rehabilitation.
[2019-01-25 20:49] VITALS: BP 121/76
[2019-01-25] MEDS: quetiapine 100mg tablet PO SCH (20:58)
[2019-01-25] MEDS: mirtazapine 15mg tablet PO SCH (21:56)
--- NOTE | 2019-01-25 22:03 | NUR ---
NURSING PROGRESS NOTE Legal hold: Voluntary as of 01/23/19 Client on involuntary status for DTS. Report received from nurse with use of SBAR: JUAN Rouse Why are they here: 53 year-old male was brought in to the Emergency Department at [facility] on 01/07/19 with altered sensorium after a suicide attempt to overdose on multiple medications including Procardia, Seroquel, Trazodone, Coreg, and Benzodiazepines. He was intubated for respiratory failure and admitted for acute metabolic encephalopathy, complicated by circulatory shock, possible sepsis r/t aspiration pneumonia, and acute kidney injury r/t hypoperfusion v/s rhabdomyolysis. Pt. also has a non-bleeding gastric ulcer diagnosed by EGD, and was diagnosed with anemia and started on iron. Pt. had left a note for his brothers to take care of his family. Pt reports his had asked for a divorce and he hasn't been sleeping and worrying his is sleeping with other men. Assessment What happened this shift: Pt walks the nielsen and keeps to himself, not interacting with peers. He smiles upon approach and requests sign writer hand to go over his night time medication. Rollout Manager goes over each medication with patient and why he is taking it, pt verbalizes understanding. He requests to take his remeron 1 hour after his other medications. PT denies any feelings of suicidal ideation but he does say he still is feeling sad. Pt said he feels like he has been improving since he has been here but "I still feel sad." A/VH: Denies Sleep: see sleep assessment notation ADL's: Independent Group attendance: Yes. Were meds taken: Yes Any med S/E: None Mental Status Exam Appearance: Neat and appropriately dressed in personal clothing Eye contact: Fair Behavior: Pt. presents as pleasant, cooperative, fatigued, and guarded. Speech: non pressured, normal sarah, organized, patient is Malay speaking but speaks and understands Gambian. Mood: Depressed. Affect: Flat Thought process: Linear Thought Content: Concerned about his medications Cognition: A &O X4 Insight: fair Judgment: Poor Interventions PRN's used: na Therapeutic interventions: maintained a safe and therapeutic environment, observed for changes in behavior and need for intervention, encouraged independent performance of ADLs, and maintained Q 15 min safety checks. Restraints/seclusion/emergency medication: N/A Justification of Continued Inpatient Treatment: Pt. requires interruption of current crisis r/t recent suicide attempt by OD, medication adjustments, and a safe and supportive environment with a focus on rest and rehabilitation.
[2019-01-26] MEDS: sertraline 50mg tablet PO SCH (07:59)
[2019-01-26] MEDS: NIFEdipine XL 30mg tablet PO SCH ×2 (07:59→20:23)
[2019-01-26 08:00] VITALS: BP 125/90
[2019-01-26] MEDS: losartan 50mg tablet PO SCH (08:00)
[2019-01-26] MEDS: ferrous sulfate 325mg tablet PO SCH ×2 (08:00→20:23)
[2019-01-26] MEDS: HYDROchlorothiazide 12.5mg capsule PO SCH (08:00)
[2019-01-26] MEDS: pantoprazole 40mg Tablet.DR PO SCH (08:01)
[2019-01-26] MEDS: carVEDilol 12.5mg tablet PO SCH ×2 (08:02→20:24)
--- NOTE | 2019-01-26 16:41 | NUR ---
NURSING PROGRESS NOTE Legal hold: Voluntary Report received from nurse with use of SBAR: JUAN Hummel Why are they here: 53 year-old male was brought in to the Emergency Department at [facility] on 01/07/19 with altered sensorium after a suicide attempt to overdose on multiple medications including Procardia, Seroquel, Trazodone, Coreg, and Benzodiazepines. He was intubated for respiratory failure and admitted for acute metabolic encephalopathy, complicated by circulatory shock, possible sepsis r/t aspiration pneumonia, and acute kidney injury r/t hypoperfusion v/s rhabdomyolysis. Pt. also has a non-bleeding gastric ulcer diagnosed by EGD, and was diagnosed with anemia and started on iron. Pt. had left a note for his brothers to take care of his family. Pt reports his had asked for a divorce and he hasn't been sleeping and worrying his is sleeping with other men. Assessment What happened this shift: Patient observed resting comfortably in his room. He reports that he slept well the night before. He says that he has seen improvement in his mood since he has been here. RN goes over each medication with patient and explains what they are for. Patient verbalizes understanding and denies any needs. Patients eats all meals and attends all groups. He is quiet but does not isolate and is observed pacing the nielsen throughout the day. A/VH: none reported S/I H/I: none reported Sleep: 7hrs NOC ADL's: Independent Group attendance: Yes. Were meds taken: Yes Any med S/E: None Mental Status Exam Appearance: Neat and appropriately dressed in personal clothing Eye contact: direct Behavior: Pt. presents as pleasant, cooperative, friendly with others Speech: patient is Omani speaking but speaks and understands Estonian. His tone is soft, normal rate/rhythm Mood: reports his mood is improving Affect: restricted with brightening Thought process: Linear Thought Content: no delusional thought content present Cognition: A &O X4 Insight: fair Judgment: Poor Interventions PRN's used: na Therapeutic interventions: maintained a safe and therapeutic environment, observed for changes in behavior and need for intervention, encouraged independent performance of ADLs, and maintained Q 15 min safety checks. Restraints/seclusion/emergency medication: N/A Justification of Continued Inpatient Treatment: Pt. requires interruption of current crisis r/t recent suicide attempt by OD, medication adjustments, and a safe and supportive environment with a focus on rest and rehabilitation. Continued therapeutic support and medication management needed to provide stabilization, prevent decompensation, improve coping mechanisms decreasing risk to patient and re-admittance.
[2019-01-26] MEDS: quetiapine 100mg tablet PO SCH (20:23)
[2019-01-26 20:28] VITALS: BP 130/82
[2019-01-26] MEDS: mirtazapine 15mg tablet PO SCH (20:55)
--- NOTE | 2019-01-27 01:22 | NUR ---
NURSING PROGRESS NOTE Legal hold: Voluntary as of 01/23/19 Client on involuntary status for DTS. Report received from nurse with use of SBAR: JUAN Finch Why are they here: 53 year-old male was brought in to the Emergency Department at [facility] on 01/07/19 with altered sensorium after a suicide attempt to overdose on multiple medications including Procardia, Seroquel, Trazodone, Coreg, and Benzodiazepines. He was intubated for respiratory failure and admitted for acute metabolic encephalopathy, complicated by circulatory shock, possible sepsis r/t aspiration pneumonia, and acute kidney injury r/t hypoperfusion v/s rhabdomyolysis. Pt. also has a non-bleeding gastric ulcer diagnosed by EGD, and was diagnosed with anemia and started on iron. Pt. had left a note for his brothers to take care of his family. Pt reports his had asked for a divorce and he hasn't been sleeping and worrying his is sleeping with other men. Assessment What happened this shift: Pt walks the nielsen and smiles. He watches TV and is seen interacting with peers occasionally. He requests to take his Remeron 1 hour after his other medications at 2100. He said his day went well and offers no concerns at this time. He makes good eye contact and appears slightly less pensive compare to last night. A/VH: Denies Sleep: see sleep assessment notation ADL's: Independent Group attendance: caustic cresylate shift superintendent Were meds taken: Yes Any med S/E: None Mental Status Exam Appearance: Neat and appropriately dressed in personal clothing Eye contact: Fair Behavior: Pt. presents as pleasant, cooperative, fatigued, and guarded. Speech: non pressured, normal sarah, organized, patient is [place] speaking but speaks and understands Sudanese. Mood: congruent to affect Affect: bland to bright Thought process: Linear Thought Content: WNL Cognition: A &O X4 Insight: fair Judgment: Poor Interventions PRN's used: na Therapeutic interventions: maintained a safe and therapeutic environment, observed for changes in behavior and need for intervention, encouraged independent performance of ADLs, and maintained Q 15 min safety checks. Restraints/seclusion/emergency medication: N/A Justification of Continued Inpatient Treatment: Pt. requires interruption of current crisis r/t recent suicide attempt by OD, medication adjustments, and a safe and supportive environment with a focus on rest and rehabilitation.
[2019-01-27 08:00] VITALS: BP 129/87
[2019-01-27] MEDS: NIFEdipine XL 30mg tablet PO SCH (08:06)
[2019-01-27] MEDS: carVEDilol 12.5mg tablet PO SCH (08:07)
[2019-01-27] MEDS: losartan 50mg tablet PO SCH (08:07)
[2019-01-27] MEDS: sertraline 50mg tablet PO SCH (08:08)
[2019-01-27] MEDS: HYDROchlorothiazide 12.5mg capsule PO SCH (08:08)
[2019-01-27] MEDS: pantoprazole 40mg Tablet.DR PO SCH (08:10)
[2019-01-27] MEDS: ferrous sulfate 325mg tablet PO SCH (08:10)
[2019-01-27] MEDS ORDERED: QUET100T33 PO (09:47)
[2019-01-27] MEDS ORDERED: LOSA50TA64 PO (09:47)
[2019-01-27] MEDS ORDERED: MIRT15TA8 PO (09:47)
[2019-01-27] MEDS ORDERED: HYDR-3686 PO (09:47)
[2019-01-27] MEDS ORDERED: SERT-153 PO (09:47)
[2019-01-27] MEDS ORDERED: FER325T PO (09:47)
[2019-01-27] MEDS ORDERED: CARV-50 PO (09:47)
[2019-01-27] MEDS ORDERED: PANT40TA4 PO (09:47)
[2019-01-27] MEDS ORDERED: PRO30XLT PO (09:47)
--- NOTE | 2019-01-27 10:55 | NUR ---
Patient ambulatory, steady gait with his . Patient denies suicidal ideation and also denying depression. Patient going home with his and has all his valuables. Patient and instructed on medications and times of administration. RN gave patient and all discharge instructions. Patient and verbalized understanding. Patient is calm and pleasant. No acute physical nor emotional distress. Patient does not smoke and did not need nicotine replacements. Patient did not need MRSA screen. Patient left the unit at 1055.
== END 2019-01-27 10:55 | disposition home or self-care (01) | DRG 885 ==
LOC: ADULT MH 08:11
PROVIDERS: ADMIT Psychiatry & Neurology Psychiatry; ATTEND Psychiatry & Neurology Psychiatry
DX: F33.2 Major depressive disorder, recurrent severe without psychotic features (principal); R45.851 Suicidal ideations; N18.9 Chronic kidney disease, unspecified; D64.9 Anemia, unspecified; F51.04 Psychophysiologic insomnia; I12.9 Hypertensive chronic kidney disease with stage 1 through stage 4 chronic kidney disease, or unspecified chronic kidney disease; Z82.49 Family history of ischemic heart disease and other diseases of the circulatory system; Z91.5 Personal history of self-harm; Z79.899 Other long term (current) drug therapy
CPT/HCPCS: 36415; 80053; 80061; 83036; 85025; 93005; 99285; Z7610